=== PATIENT | male | born 1995 | race African-American/Black ===

== ENCOUNTER 2018-12-11 14:17 | Emergency (ER) | payer OTHER ==
[~2018-12-11] VITALS: Ht 180.3 cm; Wt 90.7 kg
[2018-12-11] MEDS ORDERED: TRAZODONE 150150 M1 PO (14:21)
[2018-12-11 15:00] VITALS: BP 123/74
== END 2018-12-11 15:00 | disposition home or self-care (01) ==
LOC: ER 14:17
DX: S01.81XA Laceration without foreign body of other part of head, initial encounter (principal); W20.8XXA Other cause of strike by thrown, projected or falling object, initial encounter; Y93.89 Activity, other specified; Y92.89 Other specified places as the place of occurrence of the external cause; Y99.8 Other external cause status